=== PATIENT | female | born 1965 | race Caucasian/White ===

== ENCOUNTER 2021-10-03 15:38 | Emergency (ER) | payer OTHER ==
[2021-10-03 16:09] VITALS: BP 155/99; PULSE 75; TEMP 101; BMI 42.3
[2021-10-03] MEDS ORDERED: ACETAMINOPHEN 325 MG TABLET (FP) PO ONE (17:24)
== END 2021-10-03 17:59 | disposition home or self-care (01) ==
LOC: JER 15:38
DX: R05.1 Acute cough (principal); R50.9 Fever, unspecified; M79.10 Myalgia, unspecified site
CPT/HCPCS: 71045-TC-FY; 87804; 87807; 99284-25; C9803; U0003; U0005